=== PATIENT | male | born 1965 | race Caucasian/White ===

== ENCOUNTER → 2021-01-19 | Outpatient (CLI) | payer OTHER ==
[~2021-01-19] MED LIST: CIPRO500 MG PO; FLAGYL500 MG PO; PERCOCET 5/325 T1 EA PO; ZOFRAN ODT 4 MG4 MG SL
== END ==
LOC: KOH-I 08:00
DX: K74.60 Unspecified cirrhosis of liver (principal); K76.6 Portal hypertension; K80.20 Calculus of gallbladder without cholecystitis without obstruction
CPT/HCPCS: 76705

== ENCOUNTER → 2021-05-24 | Outpatient (CLI) | payer OTHER | LOC: US 08:13 | DX: K74.60 Unspecified cirrhosis of liver (principal); I86.8 Varicose veins of other specified sites; K80.20 Calculus of gallbladder without cholecystitis without obstruction; K82.8 Other specified diseases of gallbladder | CPT/HCPCS: 76705 ==

== ENCOUNTER → 2021-07-20 | Day surgery (SDC) | payer OTHER ==
[~2021-07-20] MED LIST changes: +LEVOTHYROXINE25 MCG PO; +OZEMPIC0.25 MG/0. SQ; +TRAMADOL HCL50 MG PO; +VITAMIN B12-FO1 EACH PO
[2021-07-21 08:14] LABS: ALPHA-1-ANTITRYPSIN, SERUM 127 mg/dL (101-187)
[2021-07-21 12:14] LABS: ANTI-CENTROMERE B ANTIBODIES <0.2 AI (0.0-0.9); ANTI-DNA (DS) AB QN <1 IU/mL (0-9); ANTI-JO-1 <0.2 AI (0.0-0.9); ANTICHROMATIN ANTIBODIES <0.2 AI (0.0-0.9); ANTIRIBOSOMAL P ANTIBODIES <0.2 AI (0.0-0.9); ANTISCLERODERMA-70 ANTIBODIES <0.2 AI (0.0-0.9); RNP ANTIBODIES <0.2 AI (0.0-0.9); SJOGREN'S ANTI-SS-A <0.2 AI (0.0-0.9); SJOGREN'S ANTI-SS-B <0.2 AI (0.0-0.9); SMITH ANTIBODIES <0.2 AI (0.0-0.9); SMITH/RNP ANTIBODIES <0.2 AI (0.0-0.9)
[2021-07-21 15:14] LABS: MITOCHONDRIAL (M2) ANTIBODY <20.0 Units (0.0-20.0)
== END | disposition home or self-care (01) ==
LOC: OR 07:28
PROVIDERS: Internal Medicine Gastroenterology
DX: K74.60 Unspecified cirrhosis of liver (principal); I85.10 Secondary esophageal varices without bleeding; K76.6 Portal hypertension; K31.89 Other diseases of stomach and duodenum; K75.81 Nonalcoholic steatohepatitis (NASH); E11.9 Type 2 diabetes mellitus without complications; E03.9 Hypothyroidism, unspecified; E66.8 Other obesity; Z68.34 Body mass index [BMI] 34.0-34.9, adult; Z79.4 Long term (current) use of insulin; Z79.899 Other long term (current) drug therapy
CPT/HCPCS: 80076; 82103; 82728; 82962; 83516; 83540; 83550; 85610; 85730; J2704; J7040

== ENCOUNTER → 2021-10-20 | Outpatient (CLI) | payer OTHER ==
[2021-10-21 08:15] LABS: HBSAG SCREEN Negative (Negative); HEP A AB, IGM Negative (Negative); HEP B CORE AB, IGM Negative (Negative); HEP C VIRUS AB 0.1 (0.0-0.9)
== END ==
LOC: LAB 07:31
PROVIDERS: Internal Medicine Gastroenterology
DX: R94.5 Abnormal results of liver function studies (principal)
CPT/HCPCS: 36415; 80074

== ENCOUNTER 2021-11-21 18:29 | Emergency (ER) | payer OTHER ==
[~2021-11-21] VITALS: Ht 182.9 cm; Wt 117.9 kg
[2021-11-21 19:10] LABS: HEMOGLOBIN 12.4 gm/dl (14.0-17.5); RED BLOOD COUNT 3.89 M/UL (4.20-5.50); WHITE BLOOD COUNT 8.1 K/UL (4.5-11.0)
[2021-11-21 19:48] LABS: BUN/CREATININE RATIO 21 (0-10)
== END 2021-11-21 23:54 | disposition home or self-care (01) ==
LOC: ER1 18:29
DX: I85.01 Esophageal varices with bleeding (principal); Z20.822 Contact with and (suspected) exposure to COVID-19
CPT/HCPCS: 36430; 80053; 85025; 85610; 86850; 86900; 86901; 86920; 96374; 96375; 96376; 99284; C9113; J0696; J2060; J2354; P9016; U0002

== ENCOUNTER → 2022-01-27 | Day surgery (SDC) | payer OTHER | END | disposition home or self-care (01) | LOC: OR 06:04 | DX: K74.60 Unspecified cirrhosis of liver (principal); I85.10 Secondary esophageal varices without bleeding; E66.8 Other obesity; I10 Essential (primary) hypertension; E11.9 Type 2 diabetes mellitus without complications; Z68.35 Body mass index [BMI] 35.0-35.9, adult; Z79.4 Long term (current) use of insulin; Z79.899 Other long term (current) drug therapy; Z20.822 Contact with and (suspected) exposure to COVID-19 | CPT/HCPCS: 82962; J2704; J3010; J7040 ==

== ENCOUNTER → 2022-03-22 | Day surgery (SDC) | payer OTHER ==
[~2022-03-22] MED LIST changes: +PROAMATINE 2.52.5 MG PO; +PROTONIX20 MG PO
== END | disposition home or self-care (01) ==
LOC: OR 08:58
DX: K74.60 Unspecified cirrhosis of liver (principal); I85.10 Secondary esophageal varices without bleeding; K75.81 Nonalcoholic steatohepatitis (NASH); K76.6 Portal hypertension; K31.89 Other diseases of stomach and duodenum; I10 Essential (primary) hypertension; E11.9 Type 2 diabetes mellitus without complications; Z79.899 Other long term (current) drug therapy
CPT/HCPCS: 82962; J2704; J7040